=== PATIENT | female | born 1970 | race African-American/Black ===

== ENCOUNTER 2023-06-20 06:35 | Emergency (ER) | payer SELFPAY ==
[2023-06-20 06:41] VITALS: BP 157/89; PULSE 70; RESP 16; TEMP 36.6; O2SAT 100; BMI 23.0
--- NOTE | 2023-06-20 06:57 | PC.NURSE ---
Lungs clear. Back in room with mother.
[2023-06-20 07:19] LABS: SARS-CoV-2 Ag reflex to NAA Negative (NEGATIVE)
[2023-06-20 14:38] LABS: SARS-CoV-2 NAA NOT DETECTED (NOT DETECTE)
== END 2023-06-20 07:03 | disposition home or self-care (01) ==
LOC: ER 06:42
PROVIDERS: Emergency Provider Internal Medicine
DX: U07.1 COVID-19 (principal); R11.2 Nausea with vomiting, unspecified; R53.1 Weakness; Z79.899 Other long term (current) drug therapy; Z79.84 Long term (current) use of oral hypoglycemic drugs
CPT/HCPCS: 87811; 99281

== ENCOUNTER 2023-06-23 19:08 | Emergency (ER) | payer SELFPAY ==
[2023-06-23 19:49] VITALS: BP 102/74; PULSE 103; RESP 16; TEMP 37.1; O2SAT 99; BMI 23.0
[2023-06-23 20:29] LABS: SARS-CoV-2 Ag POSITIVE (NEGATIVE)
--- NOTE | 2023-06-23 20:49 | ED_ITS ---
Documented by User: JORDAN Kerr 06/23/23 21:46 HPI - General Adult General Chief complaint: Nausea/Vomiting/Diarrhea Stated complaint: GENERAL WEAKNESS Time Seen by Provider: 06/23/23 20:25 Source: patient Mode of arrival: Wheelchair History of Present Illness HPI narrative: patient is a 52-year-old female who presents to the emergency department for the evaluation of vomiting and diarrhea over the last two days. her mother is positive for Covid, patient was seen in this emergency department three days ago without symptoms to be tested for Covid in her chest was negative at that time. She states in the last two days she has had body aches, generalized weakness, nausea, vomiting, diarrhea. She states she has no significant cough, no objective fevers. she does not complain of chest pain or shortness of breath. No medications taken prior to arrival. she is fully vaccinated for Covid. She is making urine. Related Data Home Medications Medication Instructions Recorded Confirmed amlodipine 5 mg tablet 5 mg PO DAILY 06/20/23 06/20/23 losartan 100 mg tablet 100 mg PO DAILY 06/20/23 06/20/23 metformin 500 mg tablet 500 mg PO BID 06/20/23 06/20/23 prednisone 10 mg tablet 15 mg PO DAILY 06/20/23 06/20/23 propranolol 160 mg capsule,24 160 mg PO Q24H 06/20/23 06/20/23 hr,extended release semaglutide 14 mg tablet (Rybelsus) 14 mg PO DAILY 06/20/23 06/20/23 Previous Rx's Medication Instructions Recorded ywggvpzlelyaxls-ozhipfzoqbqcglr-QB 10 ml PO Q6H PRN cold symptoms 06/23/23 2 mg-30 mg-10 mg/5 mL oral syrup #200 mL (Bromfed DM) ondansetron 4 mg disintegrating 4 mg PO Q6H PRN nausea and 06/23/23 tablet vomiting #12 tabs Allergies Allergy/AdvReac Type Severity Reaction Status Date / Time No Known Drug Allergies Allergy Verified 06/20/23 06:45 Review of Systems ROS Constitutional Denies: fever or chills Ears, nose, mouth, and throat Denies: throat pain Cardiovascular Denies: chest pain Respiratory Reports: cough; Denies: shortness of breath Gastrointestinal Reports: abdominal pain, nausea, vomiting and diarrhea Integumentary/Breast Denies: rash Endocrine Denies: excessive urination PFSH PFSH Social History Smoking status: Never smoker Exam Narrative Exam Narrative: Gen.: Awake, alert, in no distress Head: Normocephalic, atraumatic Respiratory: No respiratory distress, lungs clear bilaterally Cardio: Regular rate and rhythm Gastrointestinal: Abdomen is soft, nondistended and nontender to palpation Extremities: Moves extremities equally Psych: Normal mood and affect Neuro: No focal neuro deficit Skin: Warm, dry, intact Constitutional Vital Signs, click to edit/add: Last Vital Signs Temp 98.7 F 06/23/23 19:49 Pulse 92 H 06/23/23 23:47 Resp 16 06/23/23 23:47 BP 102/74 06/23/23 19:49 Pulse Ox 99 06/23/23 23:47 O2 Del Method Room Air 06/23/23 23:47 Course Vital Signs Vital signs: Vital Signs Temperature 98.7 F 06/23/23 19:49 Pulse Rate 103 H 06/23/23 19:49 Respiratory Rate 16 06/23/23 19:49 Blood Pressure 102/74 06/23/23 19:49 Pulse Oximetry 99 06/23/23 19:49 Oxygen Delivery Method Room Air 06/23/23 19:49 Temperature 98.7 F 06/23/23 19:49 Pulse Rate 92 H 06/23/23 23:47 Respiratory Rate 16 06/23/23 23:47 Blood Pressure 102/74 06/23/23 19:49 Pulse Oximetry 99 06/23/23 23:47 Oxygen Delivery Method Room Air 06/23/23 23:47 Medical Decision Making MDM Narrative Medical decision making narrative: patient with normal oxygen saturation in the Emergency Room, no complaints of chest pain or shortness of breath. She was treated with IV fluids, Zofran in the Emergency Room. No episodes of emesis in the Emergency Room. She'll be discharged home with Zofran for symptoms, Bromfed DM given for any URI symptoms that develop. CBC is unremarkable, no leukopenia or bandemia. Follow-up with PCP and return to the Emergency Room if symptoms change or worsen. Medical Records Medical records reviewed: Yes I reviewed the patient's medical records Lab Data Lab results reviewed: Yes I reviewed the patient's lab results Labs: Lab Results 06/23/23 06/23/23 Range/Units 20:13 21:18 WBC 11.6 H (4.0-11.0) 10^3/uL RBC 5.15 (4.20-5.40) 10^6/uL Hgb 15.6 (12.0-16.0) g/dL Hct 46.7 (36.0-48.0) % MCV 90.7 (81.0-99.0) fL MCH 30.3 (26.7-34.0) pg MCHC 33.4 (29.9-35.2) g/dL RDW 14.6 (11.0-15.0) % Plt Count 179 (150-450) 10^3/uL MPV 9.9 (9.5-13.5) fL Neut % (Auto) 92.6 H (43.0-75.0) % Lymph % (Auto) 4.7 L (20.5-60.0) % [place] % (Auto) 2.2 (1.7-12.0) % Eos % (Auto) 0.0 L (0.9-7.0) % Baso % (Auto) 0.2 (0.2-2.0) % Neut # (Auto) 10.7 H (1.4-6.5) 10^3/uL Lymph # (Auto) 0.5 L (1.2-3.8) 10^3/uL [place] # (Auto) 0.3 (0.3-0.8) 10^3/uL Eos # (Auto) 0.0 (0.0-0.7) 10^3/uL Baso # (Auto) 0.0 (0.0-0.1) 10^3/uL Abs Immat Gran (auto) 0.03 (0.00-0.03) 10^3/uL Imm/Tot Granulo (auto) 0.3 (0.0-0.5) % Sodium 131 L (136-145) mmol/L Potassium 3.9 (3.5-5.1) mmol/L Chloride 93 L (98-107) mmol/L Carbon Dioxide 21.0 (21.0-32.0) mmol/L Anion Gap 20.9 BUN 25.0 H (7.0-18.0) mg/dL Creatinine 0.97 (0.55-1.02) mg/dL Est GFR ( Amer) >60 (>=60) Est GFR (Non-Af Amer) >60 (>=60) BUN/Creatinine Ratio 25.8 Glucose 101 (74-106) mg/dL Calcium 9.3 (8.5-10.1) mg/dL Total Bilirubin 0.9 (0.2-1.0) mg/dL AST 30 (15-37) U/L ALT 24 (14-59) U/L Alkaline Phosphatase 84 (46-116) U/L Total Protein 8.4 H (6.4-8.2) g/dL Albumin 3.7 (3.4-5.0) g/dL Globulin 4.7 g/dL Albumin/Globulin Ratio 0.8 SARS-CoV-2 (PCR) Positive A (NEGATIVE) Discharge Plan Discharge Chief Complaint: Nausea/Vomiting/Diarrhea Clinical Impression: COVID-19, Vomiting and diarrhea, Generalized weakness Patient Disposition: Home, Self-Care Time of Disposition Decision: 21:43 Condition: Good Prescriptions / Home Meds: New pllbylupfdqpapt-ftxrmhgll-AI [Bromfed DM] 2-30-10 mg/5 mL syrup 10 ml PO Q6H PRN (Reason: cold symptoms) Qty: 200 0RF ondansetron 4 mg tablet,disintegrating 4 mg PO Q6H PRN (Reason: nausea and vomiting) Qty: 12 0RF No Action amlodipine 5 mg tablet 5 mg PO DAILY losartan 100 mg tablet 100 mg PO DAILY metformin 500 mg tablet 500 mg PO BID prednisone 10 mg tablet 15 mg PO DAILY propranolol 160 mg capsule,extended release 24 hr 160 mg PO Q24H Rybelsus 14 mg tablet 14 mg PO DAILY Instructions: Acute Nausea and Vomiting (DC), COVID-19 (Coronavirus Disease 2019) (ED), How to Recover from COVID-19 at Home (ED) Stand Alone Forms: Portal Instructions Referrals: DEVON SU [Primary Care Provider] - 1 week Discharge Date/Time: 06/23/23 23:48 Documented by User: Mami Vaca MD 06/23/23 23:57 HPI - General Adult General Chief complaint: Nausea/Vomiting/Diarrhea Stated complaint: GENERAL WEAKNESS Time Seen by Provider: 06/23/23 20:25 Related Data Home Medications Medication Instructions Recorded Confirmed amlodipine 5 mg tablet 5 mg PO DAILY 06/20/23 06/20/23 losartan 100 mg tablet 100 mg PO DAILY 06/20/23 06/20/23 metformin 500 mg tablet 500 mg PO BID 06/20/23 06/20/23 prednisone 10 mg tablet 15 mg PO DAILY 06/20/23 06/20/23 propranolol 160 mg capsule,24 160 mg PO Q24H 06/20/23 06/20/23 hr,extended release semaglutide 14 mg tablet (Rybelsus) 14 mg PO DAILY 06/20/23 06/20/23 Previous Rx's Medication Instructions Recorded mniypmovunveduz-tjnrptcrgjovxgk-JR 10 ml PO Q6H PRN cold symptoms 06/23/23 2 mg-30 mg-10 mg/5 mL oral syrup #200 mL (Bromfed DM) ondansetron 4 mg disintegrating 4 mg PO Q6H PRN nausea and 06/23/23 tablet vomiting #12 tabs Allergies Allergy/AdvReac Type Severity Reaction Status Date / Time No Known Drug Allergies Allergy Verified 06/20/23 06:45 PFSH PFSH Social History Smoking status: Never smoker Exam Constitutional Vital Signs, click to edit/add: Last Vital Signs Temp 98.7 F 06/23/23 19:49 Pulse 92 H 06/23/23 23:47 Resp 16 06/23/23 23:47 BP 102/74 06/23/23 19:49 Pulse Ox 99 06/23/23 23:47 O2 Del Method Room Air 06/23/23 23:47 Course Vital Signs Vital signs: Vital Signs Temperature 98.7 F 06/23/23 19:49 Pulse Rate 103 H 06/23/23 19:49 Respiratory Rate 16 06/23/23 19:49 Blood Pressure 102/74 06/23/23 19:49 Pulse Oximetry 99 08/29/23 19:49 Oxygen Delivery Method Room Air 06/23/23 19:49 Temperature 98.7 F 06/23/23 19:49 Pulse Rate 92 H 06/23/23 23:47 Respiratory Rate 16 06/23/23 23:47 Blood Pressure 102/74 06/23/23 19:49 Pulse Oximetry 99 06/23/23 23:47 Oxygen Delivery Method Room Air 06/23/23 23:47 Medical Decision Making MDM Narrative Medical decision making narrative: patient with normal oxygen saturation in the Emergency Room, no complaints of chest pain or shortness of breath. She was treated with IV fluids, Zofran in the Emergency Room. No episodes of emesis in the Emergency Room. She'll be discharged home with Zofran for symptoms, Bromfed DM given for any URI symptoms that develop. CBC is unremarkable, no leukopenia or bandemia. Follow-up with PCP and return to the Emergency Room if symptoms change or worsen. Attending physician attestation I have seen and evaluated this patient. I have reviewed the mid-level provider?s documentation medical decision making and treatment plan. I agree with the mid- level provider?s assessment, and plan. Lab Data Labs: Lab Results 06/23/23 06/23/23 Range/Units 20:13 21:18 WBC 11.6 H (4.0-11.0) 10^3/uL RBC 5.15 (4.20-5.40) 10^6/uL Hgb 15.6 (12.0-16.0) g/dL Hct 46.7 (36.0-48.0) % MCV 90.7 (81.0-99.0) fL MCH 30.3 (26.7-34.0) pg MCHC 33.4 (29.9-35.2) g/dL RDW 14.6 (11.0-15.0) % Plt Count 179 (150-450) 10^3/uL MPV 9.9 (9.5-13.5) fL Neut % (Auto) 92.6 H (43.0-75.0) % Lymph % (Auto) 4.7 L (20.5-60.0) % [place] % (Auto) 2.2 (1.7-12.0) % Eos % (Auto) 0.0 L (0.9-7.0) % Baso % (Auto) 0.2 (0.2-2.0) % Neut # (Auto) 10.7 H (1.4-6.5) 10^3/uL Lymph # (Auto) 0.5 L (1.2-3.8) 10^3/uL [place] # (Auto) 0.3 (0.3-0.8) 10^3/uL Eos # (Auto) 0.0 (0.0-0.7) 10^3/uL Baso # (Auto) 0.0 (0.0-0.1) 10^3/uL Abs Immat Gran (auto) 0.03 (0.00-0.03) 10^3/uL Imm/Tot Granulo (auto) 0.3 (0.0-0.5) % Sodium 131 L (136-145) mmol/L Potassium 3.9 (3.5-5.1) mmol/L Chloride 93 L (98-107) mmol/L Carbon Dioxide 21.0 (21.0-32.0) mmol/L Anion Gap 20.9 BUN 25.0 H (7.0-18.0) mg/dL Creatinine 0.97 (0.55-1.02) mg/dL Est GFR ( Amer) >60 (>=60) Est GFR (Non-Af Amer) >60 (>=60) BUN/Creatinine Ratio 25.8 Glucose 101 (74-106) mg/dL Calcium 9.3 (8.5-10.1) mg/dL Total Bilirubin 0.9 (0.2-1.0) mg/dL AST 30 (15-37) U/L ALT 24 (14-59) U/L Alkaline Phosphatase 84 (46-116) U/L Total Protein 8.4 H (6.4-8.2) g/dL Albumin 3.7 (3.4-5.0) g/dL Globulin 4.7 g/dL Albumin/Globulin Ratio 0.8 SARS-CoV-2 (PCR) Positive A (NEGATIVE) Discharge Plan Discharge Chief Complaint: Nausea/Vomiting/Diarrhea Clinical Impression: COVID-19, Vomiting and diarrhea, Generalized weakness Patient Disposition: Home, Self-Care Time of Disposition Decision: 21:43 Condition: Good Prescriptions / Home Meds: New btgnpdjgryqrxsk-jdrpudtih-SD [Bromfed DM] 2-30-10 mg/5 mL syrup 10 ml PO Q6H PRN (Reason: cold symptoms) Qty: 200 0RF ondansetron 4 mg tablet,disintegrating 4 mg PO Q6H PRN (Reason: nausea and vomiting) Qty: 12 0RF No Action amlodipine 5 mg tablet 5 mg PO DAILY losartan 100 mg tablet 100 mg PO DAILY metformin 500 mg tablet 500 mg PO BID prednisone 10 mg tablet 15 mg PO DAILY propranolol 160 mg capsule,extended release 24 hr 160 mg PO Q24H Rybelsus 14 mg tablet 14 mg PO DAILY Instructions: Acute Nausea and Vomiting (DC), COVID-19 (Coronavirus Disease 2019) (ED), How to Recover from COVID-19 at Home (ED) Stand Alone Forms: Portal Instructions Referrals: DEVON SU [Primary Care Provider] - 1 week Discharge Date/Time: 06/23/23 23:48
[2023-06-23] MEDS: ONDANSETRON PF 4 MG/2 ML VIAL IV ×2 (21:22→23:02)
[2023-06-23] MEDS: 0.9 % SODIUM CHLORIDE 1,000 ML 999 ML IV (21:22)
[2023-06-23 21:27] LABS: Basophils Percent Auto 0.2 % (0.2-2.0); Hematocrit 46.7 % (36.0-48.0); Hemoglobin 15.6 g/dL (12.0-16.0); Immature Granulocytes Abs Auto 0.03 10^3/uL (0.00-0.03); Immature Granulocytes Pct Auto 0.3 % (0.0-0.5); Lymphocytes Absolute Auto 0.5 10^3/uL (1.2-3.8); Lymphocytes Percent Auto 4.7 % (20.5-60.0); Mean Corpuscular HGB Conc 33.4 g/dL (29.9-35.2); Mean Corpuscular Hemoglobin 30.3 pg (26.7-34.0); Mean Corpuscular Volume 90.7 fL (81.0-99.0); Mean Platelet Volume 9.9 fL (9.5-13.5); Monocytes Absolute Auto 0.3 10^3/uL (0.3-0.8); Monocytes Percent Auto 2.2 % (1.7-12.0); Neutrophils Absolute Auto 10.7 10^3/uL (1.4-6.5); Neutrophils Percent Auto 92.6 % (43.0-75.0); Platelet Count 179 10^3/uL (150-450); Red Blood Count 5.15 10^6/uL (4.20-5.40); Red Cell Distribution Width 14.6 % (11.0-15.0); White Blood Count 11.6 10^3/uL (4.0-11.0)
[2023-06-23 21:42] LABS: Alanine Aminotransferase 24 U/L (14-59); Albumin Globulin Ratio 0.8; Albumin Level 3.7 g/dL (3.4-5.0); Alkaline Phosphatase 84 U/L (46-116); Anion Gap 20.9; Aspartate Amino Transferase 30 U/L (15-37); BUN Creatinine Ratio 25.8; Bilirubin Total 0.9 mg/dL (0.2-1.0); Calcium 9.3 mg/dL (8.5-10.1); Chloride 93 mmol/L (98-107); Estimated GFR (African America >60 (>=60); Estimated GFR (Non-African Ame >60 (>=60); Globulin 4.7 g/dL; Glucose 101 mg/dL (74-106); Potassium 3.9 mmol/L (3.5-5.1); Sodium 131 mmol/L (136-145); Total Protein 8.4 g/dL (6.4-8.2)
[2023-06-23] MEDS: PROMETHAZINE HCL 25 MG/ML VIAL 12.5 MG IV (22:00)
[2023-06-23 23:47] VITALS: PULSE 92; RESP 16; O2SAT 99
== END 2023-06-23 23:48 | disposition home or self-care (01) ==
PROVIDERS: Physician Assistant; Emergency Provider Emergency Medicine; PCP Internal Medicine
DX: U07.1 COVID-19 (principal); R19.7 Diarrhea, unspecified; R11.10 Vomiting, unspecified; R53.1 Weakness; Z79.899 Other long term (current) drug therapy
CPT/HCPCS: 36415; 80053; 85025; 87811; 96361; 96374; 96375; 96376; 99285